=== PATIENT | male | born 1945 | race Caucasian/White ===

== ENCOUNTER → 2021-02-08 | Outpatient (CLI) | payer MEDICARE, OTHER ==
[~2021-02-08] MED LIST: ASPIRIN EC81 MG PO; BENAZEPRIL HCL40 MG PO; CARVEDILOL12.5 MG PO; CELEXA40 MG PO; CLARITIN10 MG PO; COZAAR50 MG PO; CRESTOR40 MG PO; HYDROCHLOROTH12.5 MG PO; ISOSORBIDE MONO60 MG PO; K-TAB ER10 MEQ PO; METFORMIN HCL500 MG PO; MULTIVITAMINS1 EAC2 PO; NORVASC10 MG PO; OMEPRAZOLE20 M1 PO; PLAVIX 75 MG TA75 MG PO; RANOLAZINE ER1000 MG PO; ROPINIROLE HCL1 MG PO; TRAZODONE HCL100 MG PO
== END ==
LOC: ECHO 09:30
DX: I25.9 Chronic ischemic heart disease, unspecified (principal)
CPT/HCPCS: ECHO; 93306

== ENCOUNTER 2021-03-12 12:02 | Observation (INO) | payer OTHER, MEDICARE, BC ==
[~2021-03-12] VITALS: Ht 177.8 cm; Wt 105.2 kg
[2021-03-12 12:55] LABS: HEMOGLOBIN 14.1 gm/dl (14.0-17.5); RED BLOOD COUNT 4.41 M/UL (4.20-5.50); WHITE BLOOD COUNT 5.6 K/UL (4.5-11.0)
[2021-03-12 13:41] LABS: BUN/CREATININE RATIO 14 (0-10)
[2021-03-12] MEDS ORDERED: BENAZEPRIL HCL40 MG PO (17:54)
[2021-03-12] MEDS ORDERED: CELEXA40 MG PO (17:55)
[2021-03-12] MEDS ORDERED: PLAVIX 75 MG TA75 MG PO (17:55)
[2021-03-12] MEDS ORDERED: CLARITIN10 MG PO (17:56)
[2021-03-12] MEDS ORDERED: NORVASC10 MG PO (17:56)
[2021-03-12] MEDS ORDERED: HYDROCHLOROTH12.5 MG PO (17:56)
[2021-03-12] MEDS ORDERED: ISOSORBIDE MONO60 MG PO (17:57)
[2021-03-12] MEDS ORDERED: MULTIVITAMINS1 EAC2 PO (17:57)
[2021-03-12] MEDS ORDERED: OMEPRAZOLE20 M1 PO (17:57)
[2021-03-12] MEDS ORDERED: COZAAR50 MG PO (17:58)
[2021-03-12] MEDS ORDERED: METFORMIN HCL500 MG PO (17:58)
[2021-03-12] MEDS ORDERED: TRAZODONE HCL100 MG PO (17:58)
[2021-03-12] MEDS ORDERED: CRESTOR40 MG PO (17:59)
[2021-03-12] MEDS ORDERED: ROPINIROLE HCL1 MG PO (17:59)
[2021-03-12] MEDS ORDERED: ASPIRIN EC81 MG PO (18:00)
[2021-03-12] MEDS ORDERED: CARVEDILOL12.5 MG PO (18:01)
[2021-03-12] MEDS ORDERED: RANOLAZINE ER1000 MG PO (18:01)
[2021-03-12] MEDS ORDERED: K-TAB ER10 MEQ PO (18:02)
[2021-03-13 02:03] LABS: HEMOGLOBIN 14.7 gm/dl (14.0-17.5); RED BLOOD COUNT 4.54 M/UL (4.20-5.50); WHITE BLOOD COUNT 8.7 K/UL (4.5-11.0)
[2021-03-13 02:06] LABS: BUN/CREATININE RATIO 15 (0-10)
[2021-03-13] MEDS ORDERED: RANOLAZINE ER1000 MG PO (12:09)
== END 2021-03-13 13:57 | disposition home or self-care (01) ==
LOC: ER1 12:02 → CDU 14:16 → MED SURG 4 16:56
PROVIDERS: Emergency Medicine; Physician Assistant Medical; ADMIT Internal Medicine
DX: I95.89 Other hypotension (principal); I25.10 Atherosclerotic heart disease of native coronary artery without angina pectoris; I10 Essential (primary) hypertension; D69.6 Thrombocytopenia, unspecified; E11.9 Type 2 diabetes mellitus without complications; Z98.61 Coronary angioplasty status; Z20.822 Contact with and (suspected) exposure to COVID-19
CPT/HCPCS: 36415; 70450; 70496; 70498; 71045; 80048; 80053; 82550; 82553; 82962; 83735; 83874; 84484; 85025; 85027; 85610; 85730; 93005; 99285; G0378; Q9967; U0002